=== PATIENT | female | born 1970 | race Caucasian/White ===

== ENCOUNTER 2020-05-02 10:51 | Emergency (ER) | payer OTHER, SELFPAY ==
[2020-05-02 10:52] VITALS: BP 137/83; PULSE 100; RESP 16; TEMP 36.7; O2SAT 100; BMI 23.2
--- NOTE | 2020-05-02 11:10 | ED.DCSUM_ITS ---
History of Present Illness Chief Complaint: Upper Extremity Injury Informant: Patient Occurred: Month(s) - 1 month Mechanism/Context: - - denies injury Onset: Month(s) - 1 month Context: Gradual Onset Timing: Continuous Quality of Pain: Throbbing Location: left 4th and fifth fingers Current Severity: Moderate Maximum Severity: Severe Worsened by: nothing Relieved by: nothing Associated Symptoms: Parasthesia, Weakness. Negative for: Loss of Funtion Narrative: 50-year-old female who denies any significant past medical history presents to the emergency department with weakness and paresthesias of her fourth and fifth fingers on the left hand. This is been ongoing for a month. She is also been having some symptoms on the right hand as well but those have improved. She is on her computer a lot with a keyboard and has been following with her primary care physician for this. She states that 1 of her friends scared her this morning and told her that she may be having a stroke. Denies headache blurry vision double vision loss of vision difficulty with speech or ambulation or any other weakness or paresthesias. Denies trauma pain swelling or redness of her upper extremity. She is right-hand dominant. Rest of her review of systems are negative. Tetanus Immunization: Unknown Prior similar symptoms: No Recent Illness/Hospitalization: No Past Medical History - Allergies and Home Meds Allergies/Adverse Reactions: Allergies Penicillins [PCN] Allergy (Verified 05/02/20 10:52) Rash Prior records reviewed: Yes Past Medical History: None Surgical History: no surgical history Lives: With Family Smoking Status: Never smoker Alcohol: None Drugs: None Review of Systems All systems negative except as indicated General: Denies: Chills, Fever, Sweats Eyes: Denies: Visual changes - bilaterally, Diplopia ENT: Denies: Rhinorrhea, Sore throat Cardiovascular: Denies: Chest pain, Palpitations Respiratory: Denies: Dyspnea, Cough, Dyspnea on exertion Gastrointestinal: Denies: Abdominal pain, Nausea, Vomiting, Diarrhea, Melena, Hematochezia Genitourinary: Denies: Dysuria, Hematuria, Frequency Musculoskeletal: Denies: Back pain, Swelling, Extremity Pain Skin: Denies: Rash, Wounds Neurological: Reports: Weakness, Parasthesia. Denies: Headache, Numbness Physical Exam Vital Signs/Narrative: Vital Signs Temp Pulse Resp BP Pulse Ox 05/02/20 10:52 98.1 F 100 16 137/83 H 100 Inital Vital Signs reviewed: Yes Left Finger: - - Patient has weakness of her left fourth and fifth fingers with difficulty with extension. She has no weakness with flexion. Slightly diminished sensation of the fourth and fifth fingers but she can still feel sharp prick sensation. Capillary refill and sensation are normal. No redness or swelling or signs of trauma. Patient has normal active range of motion of her first second and third fingers with normal sensation in those fingers and normal capillary refill. She has no weakness with wrist flexion or extension. She has no weakness with pronation or supination. She has no weakness with flexion or extension at the elbow. Again there is normal inspection of the left upper extremity. General: Well nourished, Well developed Head: Normocephalic, Atraumatic Eyes: Perrl, EOMI ENT: No Trauma, Moist Mucous Membranes Neck: Nontender, Full ROM Cardiovascular: Regular rate, Regular rhythm, No murmurs Respiratory: No distress, CTA bilaterally, Chest nontender Abdomen: Soft, Nontender, Nondistended, Normal bowel sounds Back: Nontender Skin: Normal color, No rash Neurological: Alert, Oriented x3, Cranial nerves II-XII grossly intact, Normal Strength, Normal Sensation, Normal Gait Psychological: Normal affect, Normal Mood Diagnostic/Tx/Re-eval - Medical Decision Making Patient presents with worsening of her weakness of her left fourth and fifth fingers. Patient's NIH stroke scale was 0. She does not have any signs of infection she does not have any signs of compartment syndrome. This is likely related to her being on her computer and keyboard typing. We discussed with patient that she needs to be seen by orthopedic hand surgery. Patient was placed in a splint for comfort and will be referred to orthopedics Dr. Valenzuela hand surgeon [employer] [facility]. ED Disposition - Plan for ED Patient: Disposition: Home or Assisted Living Diagnosis: Ulnar neuropathy of left upper extremity Instructions: ED Palsy Unlar Nerve Additional Instructions: Earl Valenzuela M.D. Fellowship-Trained Orthopaedic Surgeon Board-Certified Since 2019 Hand and Wrist [phone] [facility] [address] [place] [address], [address] [place] [address], [place] [id number]
[2020-05-02 12:10] VITALS: PULSE 98; RESP 17; O2SAT 97
== END 2020-05-02 12:13 | disposition home or self-care (01) ==
LOC: ED 11:26
PROVIDERS: Emergency Provider Physician Assistant Medical; PCP Family Medicine
DX: G56.22 Lesion of ulnar nerve, left upper limb (principal)
CPT/HCPCS: 99283